=== PATIENT | female | born 1990 | race African-American/Black ===

== ENCOUNTER 2022-11-21 16:09 | Day surgery (SDC) | payer BC, OTHER ==
[2022-11-21 17:09] LABS: EPITHELIAL CELLS FEW /hpf
[2022-11-21] MEDS ORDERED: KETOROLAC TROMETHAMINE 30 MG/1 ML VIAL ONE (17:22)
[2022-11-21] MEDS ORDERED: KETOROLAC TROMETHAMINE 30 MG/1 ML VIAL IVPUSH ONE (17:23)
[2022-11-21] MEDS ORDERED: SODIUM CHLORIDE 1,000 ML IV STA (17:23)
[2022-11-21 17:49] LABS: HEMATOCRIT 44.4 % (32.4-45.2); HEMOGLOBIN 14.6 G/dL (10.7-15.3); MCH 28.1 pg (25.7-33.7); MCHC 32.9 g/dl (32.0-36.0); MEAN CELL VOLUME 85.5 fl (80-96); MEAN PLT VOLUME 10.2 fl (7.5-11.1); PLATELET COUNT 257.2 10^3/uL (134-434); RBC 5.19 10^6/uL (3.60-5.2); RDW 15.3 % (11.6-15.6); WHITE BLOOD COUNT 8.1 10^3/uL (4.0-10.8)
[2022-11-21 17:58] LABS: ALBUMIN 3.9 g/dl (3.4-5.0); BILIRUBIN,TOTAL 0.3 mg/dl (0.2-1); CALCIUM 9.1 mg/dl (8.5-10); CREATININE 0.8 mg/dl (0.55-1.3); POTASSIUM 4.3 mmol/L (3.5-5.1); TOT PROT 7.4 g/dl (6.4-8.2)
[2022-11-21 18:00] LABS: PLATELET ESTIMATE ADEQUATE
[2022-11-21] MEDS ORDERED: CEFTRIAXONE 1,000 MG in DEXTROSE 5%-WATER - 50 ML IVPB ONE (20:24)
[2022-11-21] MEDS ORDERED: cefTRIAXone SODIUM 1 GM VIAL ONE (20:26)
[2022-11-21] MEDS ORDERED: ONDANSETRON 4 MG/2 ML VIAL IVPUSH PRN (21:27)
[2022-11-21] MEDS ORDERED: DOCUSATE SODIUM 100 MG CAPSULE (FP) PO PRN (21:27)
[2022-11-21] MEDS ORDERED: DEXTROSE 5%-NORMAL SALINE 1,000 ML IV SCH (21:30)
[2022-11-21] MEDS ORDERED: ACETAMINOPHEN 1000 MG/100 ML BAG IVPB PRN (21:32)
[2022-11-22 05:24] VITALS: RESP 18
[2022-11-22 06:48] VITALS: BMI 36.3
[2022-11-22] MEDS ORDERED: PROPOFOL 80 ML ONE (09:10)
[2022-11-22] MEDS ORDERED: MIDAZOLAM HCL 2 MG/2 ML SINGLE DOSE VIAL ONE (09:11)
[2022-11-22] MEDS ORDERED: KETAMINE HCL 500 MG/10 ML VIAL ONE (09:11)
[2022-11-22] MEDS ORDERED: GENTAMICIN SO4 80 MG/2 ML VIAL ONE (09:25)
[2022-11-22] MEDS ORDERED: GENTAMICIN SO4 80 MG/2 ML VIAL IVPB ONE (09:48)
[2022-11-22] MEDS ORDERED: cefTRIAXone SODIUM 1 GM VIAL IVPB ONE (09:48)
[2022-11-22] MEDS ORDERED: DEXTROSE 5%-NORMAL SALINE 1,000 ML IV SCH (09:49)
[2022-11-22] MEDS ORDERED: DOCUSATE SODIUM 100 MG CAPSULE (FP) PO PRN (09:49)
[2022-11-22] MEDS ORDERED: ONDANSETRON 4 MG/2 ML VIAL IVPUSH PRN (09:49)
[2022-11-22] MEDS ORDERED: PROPOFOL 20 ML ONE (09:52)
[2022-11-22 09:57] LABS: INR 1.15 (0.83-1.09); PROTHROMBIN TIME (PATIENT) 13.3 SEC (9.7-13.0)
[2022-11-22 10:00] LABS: ACTIVATED PTT 36.7 SECONDS (25.2-36.5)
[2022-11-22] MEDS ORDERED: ERGOCALCIFEROL (VIT D2) 50,000 UNIT (1.25 MG) CAPSULE PO SCH ×3 (10:00)
[2022-11-22] MEDS ORDERED: CEFTRIAXONE 1 GM in DEXTROSE 5%-WATER - 50 ML IVPB SCH (10:00)
[2022-11-22 10:03] LABS: BASO % 0.4 % (0-2.0); EOS % 0.2 % (0-4.5); HEMATOCRIT 58.5 % (32.4-45.2); HEMOGLOBIN 19.5 GM/dL (10.7-15.3); LYMPH % 25.6 % (8-40); MCH 27.7 pg (25.7-33.7); MCHC 33.3 g/dl (32.0-36.0); MEAN CELL VOLUME 83.2 fl (80-96); MEAN PLT VOLUME 10.5 fl (7.5-11.1); MONO % 7.2 % (3.8-10.2); NEUT % 66.6 % (42.8-82.8); PLATELET COUNT 101 10^3/uL (134-434); RDW 14.7 % (11.6-15.6); WHITE BLOOD COUNT 3.8 K/mm3 (4.0-10.0)
[2022-11-22 10:11] LABS: CALCIUM 8.8 mg/dL (8.5-10.1)
[2022-11-22 10:12] LABS: BLOOD UREA NITROGEN 6.4 mg/dL (7-18)
[2022-11-22 10:13] LABS: RBC 7.03 M/mm3 (3.60-5.2)
[2022-11-22 10:15] LABS: CREATININE 0.6 mg/dL (0.55-1.3)
[2022-11-22] MEDS: CEFTRIAXONE 1 GM in DEXTROSE 5%-WATER - 50 ML IVPB SCH (12:05)
[2022-11-22] MEDS: DEXTROSE 5%-NORMAL SALINE 1,000 ML IV SCH ×2 (13:46→21:10)
[2022-11-22] MEDS: ACETAMINOPHEN 1000 MG/100 ML BAG IVPB PRN ×2 (13:52→21:33)
[2022-11-22] MEDS ORDERED: ACETAMINOPHEN 325 MG TABLET (FP) PO PRN ×2 (21:27)
[2022-11-23] MEDS: DEXTROSE 5%-NORMAL SALINE 1,000 ML IV SCH ×2 (02:57→08:29)
[2022-11-23] MEDS: CEFTRIAXONE 1 GM in DEXTROSE 5%-WATER - 50 ML IVPB SCH (09:39)
[2022-11-23 10:18] VITALS: BP 130/70; PULSE 76; TEMP 98.9
[2022-11-23 11:19] LABS: BASO % 0.4 % (0-2.0); EOS % 0.4 % (0-4.5); HEMATOCRIT 38.4 % (32.4-45.2); HEMOGLOBIN 12.6 GM/dL (10.7-15.3); LYMPH % 22.7 % (8-40); MCH 27.2 pg (25.7-33.7); MCHC 32.8 g/dl (32.0-36.0); MEAN CELL VOLUME 83.2 fl (80-96); MEAN PLT VOLUME 9.4 fl (7.5-11.1); MONO % 10.6 % (3.8-10.2); NEUT % 65.9 % (42.8-82.8); PLATELET COUNT 220 10^3/uL (134-434); RBC 4.62 M/mm3 (3.60-5.2); RDW 14.3 % (11.6-15.6); WHITE BLOOD COUNT 6.8 K/mm3 (4.0-10.0)
== END 2022-11-23 13:18 | disposition home or self-care (01) ==
LOC: FER 16:09 → UNDOADMOB 21:16 → FM/S 21:16 → J5S 11-22 04:45 → FM/S 11-22 04:45 → J5S 11-22 18:32 → JASUSAT 11-23 08:03 → J5S 11-23 08:23 → JASUSAT 11-23 13:18
PROVIDERS: ATTEND Nurse Practitioner Family
PROC: 0T768DZ Dilation of Right Ureter with Intraluminal Device, Via Natural or Artificial Opening Endoscopic (ICD-10-PCS; principal; 2022-11-23)
DX: N13.2 Hydronephrosis with renal and ureteral calculous obstruction (principal); N13.6 Pyonephrosis
CPT/HCPCS: 0241U-QW; 36415; 74176-TC; 76000-TC-FY; 80048; 80053; 81003; 81015; 84703; 85025; 85027; 85610; 85730; 87086; 94760; 99285-25; C2617

== ENCOUNTER 2023-01-19 05:27 | Day surgery (SDC) | payer OTHER ==
[2023-01-14 17:20] VITALS: BMI 34.9
[2023-01-19] MEDS ORDERED: MIDAZOLAM HCL 2 MG/2 ML SINGLE DOSE VIAL ONE (16:35)
[2023-01-19 19:06] VITALS: RESP 20; TEMP 98.8
[2023-01-19 19:07] VITALS: BP 118/78; PULSE 74
== END 2023-01-19 18:44 | disposition home or self-care (01) ==
LOC: JASU-SURG 05:27
PROVIDERS: ATTEND Urology
PROC: 0TF3XZZ Fragmentation in Right Kidney Pelvis, External Approach (ICD-10-PCS; principal; 2023-01-19 15:00)
DX: N20.0 Calculus of kidney (principal)
CPT/HCPCS: 81025